=== PATIENT | female | born 1950 | race Caucasian/White ===

== ENCOUNTER → 2023-07-22 08:53 | Outpatient (REF) | payer MEDICARE, SELFPAY ==
--- NOTE | 2023-07-22 09:09 | CA_ITS ---
Transthoracic Echocardiogram Patient (Last, First, Middle): Irena Zhang, Gender: Female Date of : 1950 Age: 72 Procedure Date: 07/22/2023 Procedure Type: Transthoracic Echocardiogram Location: OP Height: 170.18 cm Weight: 65.77 kg BSA: 1.76 m2 Heart Rate: bpm BP: 122 / 68 mmHg Assistant Statistician: TO Referring MD: Fish Walters DO Symptoms: R06.02 SOB Study Quality: Adequate Conclusions: - Normal left ventricular size and systolic function. There is mildly increased left ventricular wall thickness. The visually estimated ejection fraction is between 60-65%. - E/E prime ratio is >15, consistent with elevated filling pressures. - Normal right ventricular cavity size and systolic function. - The left atrium is moderately dilated. - There is mild dilatation of the sinuses of Valsalva measuring 3.53 cm and mild dilatation of the ascending aorta measuring 3.30 cm. Findings Left Ventricle Normal left ventricular size and systolic function. There is mildly increased left ventricular wall thickness. The visually estimated ejection fraction is between 60-65%. There is no evidence of regional wall motion abnormalities. Abnormal diastolic function is noted. Spectral Doppler is indicative of a pseudonormal filling pattern. E/E prime ratio is >15, consistent with elevated filling pressures. There is moderate septal asymmetric hypertrophy. Normal GLS 23%. Right Ventricle Normal right ventricular cavity size and systolic function. Atria The left atrium is moderately dilated. The right atrium is normal in size. Aortic Valve Normal aortic valve structure and function. Mitral Valve There is trace mitral valve regurgitation. There is no mitral valve stenosis. Pulmonic Valve The pulmonic valve is normal. There is trace pulmonic valve regurgitation. Tricuspid Valve Normal tricuspid valve structure. There is mild tricuspid valve regurgitation. Normal right atrial pressure. There is no evidence of pulmonary hypertension. Great Vessels There is mild dilatation of the sinuses of Valsalva measuring 3.53 cm and mild dilatation of the ascending aorta measuring 3.30 cm. The visualized portions of the pulmonary artery and branches are normal. Venous The inferior vena cava is normal in size and collapses greater than 50% with inspiration. Pericardium/Pleural There is no evidence of pericardial effusion. Prior Study Comparison No prior study available for comparison. Measurements 2D Linear Measurements IVSd: 1.34 0.6-0.9/0.6-1.0 cm LVIDd: 3.51 3.9-5.3/4.2-5.9 cm LVIDd Index: 1.99 2.4-3.2/2.2-3.1 cm/m2 LVIDs: 2.45 2.0-3.6 cm LVPWd: 0.89 0.7-1.1 cm LA Diam: 3.30 2.7-3.8/3.0-4.0 cm LAIDs Index: 1.88 1.5-2.3 cm/m2 LV Mass: 151.61 67-162/88-224 g LV Mass Index: 86.14 43-95/49-115 g/m2 LVOT Diam: 2.00 3.0+(-)1.3 cm 2D Systolic Function EF 4C: 67.00 >55% EF 2C: 63.50 >55% EF BiP: 63.50 >55% Mitral Valve MV Pk E: 0.93 MV PK A: 0.81 MV Decel Time: 220.00 E/A: 1.20 E'Lateral: 4.68 E'Medial: 4.35 E/E' Med: 21.50 E/E' Lat: 20.00 PHT: 65.00 MVA PHT: 3.38 Decel Whitley: 4.24 Aortic Valve AoV Pk Kwan: 1.36 AoV Mn Kwan: 0.90 AoV VTI: 0.31 AoV Pk Grad: 7.00 Aov Mn Grad: 4.00 SYLVAIN Cont.VTI: 2.55 LVOT LVOT Pk Kwan: 1.01 LVOT Mn Kwan: 0.66 LVOT VTI: 0.26 LVOT Pk Grad: 4.00 LVOT Mn Grad: 2.00 LVOT Diam: 2.00 LVOT Area: 3.14 Diastolic Function MV Pk E: 0.93 MV Pk A: 0.81 E/A: 1.20 E'Medial: 4.35 E/E' Med: 21.50 E' Laterial: 4.68 E/E' Lat: 20.00 Right Ventricle TAPSE (mm): 26.50 TVS' Kwan: 12.20 Tricuspid Valve TR Pk Kwan: 2.30 TR Pk Grad: 21.00 RA Press: 3.00 RVSP: 24.00 Great Vessels Aorta Sinus of Valsalva: 3.53 2.0-3.[address] Ridge: 2.55 1.7-3.4 cm Ao Asc: 3.30 2.1-3.4 cm Updated in Other Vendor System with Status of Final Abelardo Nathan MD electronically signed on 07/24/2023 11:00:29 AM with status of Final
== END ==
LOC: HO.CARD 08:53
PROVIDERS: PCP Family Medicine; Visit Provider Internal Medicine Cardiovascular Disease
DX: R06.02 Shortness of breath (principal)
CPT/HCPCS: 93306; 93356

== ENCOUNTER → 2023-07-22 09:09 | Outpatient (BNV) | payer MEDICARE, SELFPAY | PROVIDERS: PCP Family Medicine; Visit Provider Internal Medicine Cardiovascular Disease | DX: I51.7 Cardiomegaly (principal) | CPT/HCPCS: 93306 ==